=== PATIENT | male | born 1985 | race Caucasian/White ===

== ENCOUNTER 2019-01-25 11:08 | Emergency (ER) | payer OTHER ==
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
[2019-01-25] MEDS ORDERED: LIDOCAINE 1% INJ-PF (10 MG/ML) 30 ML SDV INJ ONE (14:10)
[2019-01-25] MEDS ORDERED: IBUPROFEN 800 MG TABLET PO ONE (14:34)
[2019-01-25] MEDS ORDERED: HYDROCODONE/ACETAMINOPHEN 5-325 MG TABLET PO ONE (14:34)
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
[2019-01-25 15:32] LABS: APPEARANCE,URINE CLEAR; BILIRUBIN,URINE NEGATIVE (NEGATIVE); COLOR,URINE STRAW; GLUCOSE, URINE NEGATIVE (NEGATIVE); KETONES,URINE NEGATIVE (NEGATIVE); LEUKOCYTE ESTERASE,URINE NEGATIVE (NEGATIVE); NITRITE,URINE NEGATIVE (NEGATIVE); PROTEIN,URINE NEGATIVE (NEGATIVE); URINE SPECIFIC GRAVITY 1.011; UROBILINOGEN,URINE NEGATIVE mg/dL (<2.0)
[2019-01-25] MEDS ORDERED: HYDROCODONE/ACETAMINOPHEN 5-325 MG (6 TAB/ER DISP) PO PRN (16:51)
[2019-01-25 17:23] VITALS: BP 132/83
== END 2019-01-25 17:25 | disposition home or self-care (01) ==
LOC: ER 11:08
DX: S80.01XA Contusion of right knee, initial encounter (principal); S00.83XA Contusion of other part of head, initial encounter; S81.011A Laceration without foreign body, right knee, initial encounter; M25.561 Pain in right knee; R07.81 Pleurodynia; M54.5 Low back pain; V29.9XXA Motorcycle rider (driver) (passenger) injured in unspecified traffic accident, initial encounter; Z87.820 Personal history of traumatic brain injury
CPT/HCPCS: 99283; 81001; 71046; 72220; 73562; 72110; J3490